=== PATIENT | female | born 1940 | race Caucasian/White ===

== ENCOUNTER 2017-03-07 14:12 | Inpatient (IN) | payer MEDICARE, BC, MEDICAID ==
[~2017-03-07] VITALS: Ht 170.2 cm; Wt 75.5 kg
--- NOTE | ~2017-03-07 | DS ---
PATIENT'S NAME: AME ADLER [facility] AGE: 76 Y [address] ROOM: [address] [address] [place] [facility] [place] DATE: 03/07/2017 Discharge Summary DISCHARGE DATE: 03/12/2017 FAMILY PHYSICIAN: Belén Escalante MD ATTENDING PHYSICIAN: Gil Diaz DIAGNOSES: 1. Acute abdomen with purulent peritonitis with dense thickening of the distal ileum. 2. Delirium. 3. Hypertension. 4. B12 deficiency. 5. Gastroesophageal reflux disease. 6. Generalized anxiety disorder. SUMMARY: Ame Adler is a 76-year-old female, who had a 3-day history of abdominal symptoms that began with watery diarrhea followed by abdominal distention, pain, and bilious emesis. She was seen in the [facility] in [place] where she was noted to be febrile with heart rate in the 90s and initially normotensive. CT scan of the abdomen and pelvis was obtained, which showed question of intussusception in the ileum as well as some free fluid in the pelvis and distended loops of small bowel suggestive of early small bowel obstruction. The patient did develop some hypotension that responded to IV fluid boluses. The patient was flown to [facility] for further evaluation. The patient was evaluated by Dr. Diaz, a [facility] general surgeon, and was felt to have an acute abdomen. Recommendations for surgery were made along with risks, benefits, and alternatives. The patient proceeded to the operating room where an ileocecectomy was performed. Please see his procedure note for specifics. Postoperatively, the patient was admitted to the intensive care unit where she was kept at bedrest. Her midline incision was closed at the fascial layer, but the skin edges were kept open and wet-to-dry dressing changes were ordered. Pulmonary toiletry was encouraged. She was kept n.p.o. She had an NG tube to low intermittent suction. Lovenox was ordered for DVT prophylaxis and Zosyn was ordered for antibiotic. Hospitalist was consulted for medical management. On postop day 1, the patient was awake, denied having much pain. No nausea, no shortness of breath. Vital signs were stable with a blood pressure of 90/47, heart rate 85, she was afebrile. Hemoglobin was 10.3, white blood cell count 8.4. Activity was allowed as tolerated. On postop day 2, the patient was confused with hallucinations. T-max was 100.2. NG tube had 150 mL out. Wound Care was consulted for wound VAC placement to the incisional wound. On postop day 3, the patient's Wilder catheter was removed. She was transferred to the med surg unit. Her NG tube was removed. On postop day 4, the patient reported starving. She had had bowel movements. Her pain was controlled. She was started on a clear liquid diet and was advanced to a PATIENT'S NAME: AME ADLER [facility] AGE: 76 Y [address] ROOM: [address] [address] LOC[place]: [facility] [place] DATE: 03/07/2017 Discharge Summary DISCHARGE DATE: 03/12/2017 FAMILY PHYSICIAN: Belén Escalante MD ATTENDING PHYSICIAN: Gil Diaz surgical soft diet the following day. Arrangements were made for the patient to transfer to [facility]. With the [id number] phone call, it was noted that her blood cultures were positive in [place] with E coli. They plan to continue antibiotics for an additional week. A PICC line was placed prior to transfer for this purpose. Her central line was removed. DISCHARGE INSTRUCTIONS: Include following up with Dr. Prescott in 2 weeks. Continue on surgical soft diet until March 15, 2017, when she can advance to a regular diet. She is weightbearing as tolerated. Continue with PT, OT, and Speech Therapy as needed. Oxygen to keep O2 saturations greater than 90%. The wound VAC was not going to be available until Wednesday. It was removed and damp-to-dry dressings were ordered. Once the wound VAC is available, they can change it Wednesday, Wednesday, and Wednesday. DISCHARGE MEDICATIONS: Include: 1. Zosyn 3.375 g IV q.8 hours with the stop date for us on March 15, 2017, although they plan to continue for another week due to positive blood cultures. 2. Aspirin 325 mg p.o. daily. 3. BuSpar 10 mg p.o. 3 times daily. 4. Lovenox 40 mg subcu every day. 5. Magnesium oxide 400 mg p.o. daily. 6. Meclizine 25 mg p.o. twice daily p.r.n. dizziness. 7. Zofran 4 mg p.o. q.8 hours p.r.n. nausea. 8. Toprol-XL 25 mg p.o. daily. 9. Protonix 40 mg p.o. daily. 10. K-Tab 10 mEq p.o. daily. 11. Tylenol extra strength 1000 mg 4 times a day p.r.n. pain. 12. Flonase 1 spray in the nose every day p.r.n. congestion. 13. Calcium 500 mg 1 tablet p.o. daily. 14. Pepto-Bismol 2 tablets p.o. as needed for indigestion or diarrhea. For specifics on day-to-day care, please refer to the hospital chart. Final pathology showed distal ileum showing mucosal ulceration, chronic inflammation, recent hemorrhage, reactive glandular change, transmural acute inflammation 19 lymph nodes negative for malignancy. KALI JONES PA-C FOR MD JULIÁN ROBERSON/radha PATIENT'S NAME: AME ADLER [facility] AGE: 76 Y [address] ROOM: [place] [address] LOCATION: [facility] [place] DATE: 03/07/2017 Discharge Summary DISCHARGE DATE: 03/12/2017 FAMILY PHYSICIAN: Belén Escalante MD ATTENDING PHYSICIAN: Gil Diaz /[id number] CC: Belén Escalante MD [facility] Bed d: 03/17/17 0217 t: 03/25/17 1331, DISCHARGE SUMMARY
--- NOTE | ~2017-03-07 | HP ---
PATIENT'S NAME: JUAN LOVING [facility] AGE: 76 Y [address] ROOM: [place] [address] LOCATION: GICU ADMIT DATE: 03/07/2017 History & Physical DISCHARGE DATE: FAMILY PHYSICIAN: Belén Escalante MD ATTENDING PHYSICIAN: Marlene VACA DATE OF SERVICE: The initial consultation to the emergency department was for a 76-year-old female with abdominal pain, fever, and hypotension. HISTORY OF PRESENT ILLNESS IS FOLLOWS: The patient is a 76-year-old female with a 3-day history of abdominal symptoms that began with watery diarrhea and progressed to abdominal distention and pain and bilious emesis. The patient presented to [facility] in [place] for evaluation. Her initial examination by report showed abdominal tenderness and distention. She was febrile to 101. She had a heart rate in the 90s and she was initially normotensive. They obtained a CT scan of the abdomen and pelvis which showed question of intussusception in the ilium as well as some free fluid in the pelvis and distended loops of small bowel suggestive of early small bowel obstruction. Subsequent to this imaging, the patient developed period of hypotension with a systolic blood pressure as low as 69. This responded to multiple boluses of IV fluids. The patient was air evacuated to [facility] for further evaluation. On presentation here, she complains of abdominal pain and distention. The pain she describes as excruciating. She reports obstipation and no recent bowel movement. PAST MEDICAL HISTORY: Significant for hypertension, generalized anxiety disorder, gastroesophageal reflux disease, Schatzki esophageal ring treated with esophageal dilation, mood disorder. PAST SURGICAL HISTORY: Includes EGD with dilation in 2011 and cataract surgery, and ORIF for a left hip fracture. FAMILY HISTORY: Significant for hypertension in both her mother and father. LIST OF MEDICATIONS: Have been reviewed in the admission records and include, 1. Potassium chloride. 2. Magnesium oxide. 3. Meclizine. 4. Cyanocobalamin. PATIENT'S NAME: JUAN LOVING [facility] AGE: 76 Y [address] ROOM: [place] [address] LOCATION: GICU ADMIT DATE: 03/07/2017 History & Physical DISCHARGE DATE: FAMILY PHYSICIAN: Belén Escalante MD ATTENDING PHYSICIAN: Marlene VACA 5. Ergocalciferol. 6. Metoprolol. 7. Famotidine. 8. Fluticasone. 9. Buspirone. 10. Calcium with vitamin D. ALLERGIES: NO KNOWN DRUG ALLERGIES. SOCIAL HISTORY: She has never smoked and no recent alcohol intake. REVIEW OF SYSTEMS: She denies chest pain or shortness of breath, and she endorses positive nonbloody bilious emesis, obstipation, abdominal pain, bloating. PHYSICAL EXAM: VITAL SIGNS: Her heart rate is 95. She is normotensive with normal room air sats. GENERAL: She is a somewhat poor historian. She does attend to questions and is pleasant. She is in significant distress. HEENT: She is anicteric. Her mucous membranes are dry. Her oropharynx is clear. NECK: Supple. CARDIAC: She is in normal sinus rhythm per EKG. Her heart rate is in the 90s. She has no murmur. PULMONARY: Bilateral breath sounds. No wheezing. ABDOMEN: She has a well-healed infraumbilical midline incision consistent with her initial surgical history of tubal ligation. She has a protuberant and tympanic abdomen with apparent generalized peritonitis and there is no appreciable organomegaly. There are no overlying skin changes. EXTREMITIES: Her extremity exam is normal. BACK: Normal. LAB TESTS: [place] the [place] [address], her hemoglobin and hematocrit are 12 and 34 with a platelet count of 247. Her UA is 1.010 specific gravity with a pH of 6.0. Her sodium was 127, with a potassium of 3.3, a chloride of 94. Her glucose is 109. AST and ALT are 14 and 15 respectively with total bilirubin of 1.4. Her CRP is elevated at 6.5. An EKG shows normal sinus rhythm with a heart rate of 99, and her CT scan revealed small bowel dilation with apparent mechanical distal small bowel obstruction with a thickened distal ilium and surrounding edema. There is a moderate amount of ascites. PATIENT'S NAME: JUAN LOVING [facility] AGE: 76 Y [address] ROOM: [place] [address] [address]: [facility] ADMIT DATE: 03/07/2017 History & Physical DISCHARGE DATE: FAMILY PHYSICIAN: Belén Escalante MD ATTENDING PHYSICIAN: Marlene VACA IMPRESSION: Acute abdomen. Etiologies are multiple. It is possible that she has a small bowel obstruction from a distal small bowel tumor or intussusception from a pathological lead point. Other etiologies are also entertained to include infectious, inflammatory, and neoplastic causes. Given the severity of her symptoms, her fever and her transient hypotension and her generalized peritonitis, the plan is for abdominal exploration to be done on an emergent basis. I have discussed my findings and recommendations with the patient who agrees to proceed. She did express that she wants to be intubated for the procedure and for whatever duration postoperatively, but does not want to have electro-mechanical resuscitation in the event that she suffers cardiopulmonary arrest. PLAN: Abdominal exploration with postoperative ICU admission. MARLENE VACA MD CM/modl /[id number] D: [id number] T: HISTORY & PHYSICAL
--- NOTE | ~2017-03-07 | OR ---
PATIENT'S NAME: JUAN LOVING [facility] AGE: 76 Y [address] ROOM: [id number] [place], [place] [address] LOCATION: GICU ADMIT DATE: 03/07/2017 OR/Procedure Report DISCHARGE DATE: FAMILY PHYSICIAN: Belén Escalante MD ATTENDING PHYSICIAN: Gil DIAZ SURGEON: Gil Diaz MD LACTATION CONSULTANT: DATE OF PROCEDURE: 03/07/2017 ANESTHESIA: General endotracheal anesthesia. PROCEDURE PERFORMED: Exploratory laparotomy. SPECIMENS: Ileocecectomy and proximal margin. DESCRIPTION OF PROCEDURE: After informed consent was obtained, the patient was taken to the operating room. A right internal jugular central line and radial A-line were both placed by Anesthesia. The patient was intubated. Her abdomen was sterilely prepped and draped. Inspection of her abdomen revealed a distended abdomen with an infraumbilical midline scar consistent with her open tubal ligation. A surgical time-out was performed. A midline laparotomy incision from just above the umbilicus to above the symphysis pubis was made. Entry into the peritoneal cavity through the midline fascia was achieved with Bovie electrocautery. Purulent peritonitis was identified. The small bowel was eviscerated. The bowel was run from the ligament of Treitz, distally. Incidental jejunal diverticulosis was noted without evidence of small bowel diverticulitis or obstruction. In the distal ilium, starting 5 cm proximal to the ileocecal valve was a 22 cm length area of dense thickening with mesenteric scarring and foreshortening. These findings were suggestive of a small bowel tumor such as carcinoid, but certainly not diagnostic. Adjacent small bowel was erythematous, moderately distended, and mildly edematous. The large bowel distal to this was decompressed. The appendix, cecum, and remainder of the colon down to the rectosigmoid junction was normal in appearance. Moderate amount of pus was aspirated from the peritoneal cavity. The palpated and visualized surfaces of the liver, stomach, and omentum were normal except for omental inflammation. No omental seeding implants or caking was noted. Attention was turned to the area of obstruction. In this area, there was some significant serositis and evidence of likely perforation. Resecting this very thickened segment of ileum required an ileocecectomy with resection of a total of approximately 40 cm of distal ileum. A hand-sewn end-to-end ileocolic anastomosis was fashioned using a running 5-0 PDS suture. This was reinforced with several interrupted, Lemberted seromuscular silks. The mesenteric defect was closed with a running 2-0 Vicryl. 6 L of irrigation was used to irrigate the abdominal cavity. The omentum was placed in the vicinity of the anastomosis. The midline fascia was closed with #1 looped PDS x2. The skin was left partially open with interrupted serena and Betadine soaked packs. Sterile dressings were PATIENT'S NAME: JUAN LOVING [facility] AGE: 76 Y [address] ROOM: [place] [address] LOCATION: [facility] ADMIT DATE: 03/07/2017 OR/Procedure Report DISCHARGE DATE: FAMILY PHYSICIAN: Belén Escalante MD ATTENDING PHYSICIAN: Gil DIAZ. The patient was extubated in the operating room, taken to the recovery room in stable condition. She will be monitored postoperatively in the intensive care unit. GIL DIAZ MD CM/radha /[id number] d: 03/07/172038 t: 03/07/172204, OPERATIVE SUMMARY
--- NOTE | ~2017-03-07 | HP ---
PATIENT'S NAME: JUAN LOVING [facility] AGE: 76 Y [address] ROOM: [place] [address] LOCATION: GICU ADMIT DATE: 03/07/2017 History & Physical DISCHARGE DATE: FAMILY PHYSICIAN: Belén Escalante MD ATTENDING PHYSICIAN: Gil VACA DATE OF SERVICE: CHIEF COMPLAINT: Abdominal pain. HISTORY OF PRESENT ILLNESS: A 76-year-old lady with a past medical history of hypertension, was transferred from outside facility, [place], with abdominal pain which was located initially in the right lower quadrant and then spread all over. Associated with fever and chills and hypotension on the presentation with the systolic around 70s, was transferred over here by [facility]. Initial lab work was significant for leukocytosis, lactic acidosis. A CAT scan of the abdomen was done at the transferring facility which did show developing small-bowel obstruction, likely intussusception. General Surgery took the patient to the OR for exploratory laparotomy and found ileal perforation and about 40 cm of the small bowel was resected and an end-to-end anastomosis was done. There was a lot of pus in the abdomen, so the fascia was rejoined but the skin was left open due to fear of infection. On my encounter, she is lying here alert and oriented, comfortable. States that she is not feeling any abdominal pain at this point; does not have any shortness of breath, any chest pain, any fever or chills, but she stated that she is feeling cold. Does not have any appetite at this point. REVIEW OF SYSTEMS: All other systems reviewed and were negative except for what is mentioned in the HPI. PAST MEDICAL HISTORY: Hypertension, gastroesophageal reflux disease, B12 deficiency, generalized anxiety disorder, osteoporosis. MEDICATIONS: Being reconciled right now. ALLERGIES: NO KNOWN DRUG ALLERGIES. SOCIAL HISTORY: No ongoing toxic habits. PATIENT'S NAME: JUAN LOVING [facility] AGE: 76 Y [address] ROOM: [place] [address] LOCATION: GICU ADMIT DATE: 03/07/2017 History & Physical DISCHARGE DATE: FAMILY PHYSICIAN: Belén Escalante MD ATTENDING PHYSICIAN: Gil VACA FAMILY HISTORY: Negative for any premature coronary artery disease. PHYSICAL EXAMINATION: VITAL SIGNS: Temperature 98.7, pulse 75, respiratory rate of 16, blood pressure systolic in the 120s over 70s on the Art-Line. GENERAL: In no acute distress. Alert and oriented x3. HEENT: Head; atraumatic, normocephalic. Eyes; nonicteric, no pallor. Oropharynx, moist mucous membranes. CARDIOVASCULAR: S1, S2. No murmurs, gallops, or rubs. LUNGS: Clear to auscultation bilaterally. ABDOMEN: Exploratory incision is surgically dressed. Bowel sounds are present. No CVA tenderness noted on superficial palpation. EXTREMITIES: No clubbing, cyanosis, or edema. PSYCH: Normal affect, mood, and speech. NEURO: Cranial nerves 2 through 12 intact. No motor or sensory deficit. MUSCULOSKELETAL: No muscle tenderness or joint swelling noted. ENDOCRINE: No thyromegaly or myxedema noted. SKIN: No blemishes or rashes noted. LABORATORY AND DIAGNOSTIC DATA: CT scan at the outside facility showed question of intussusception in the ileum as well as some free fluid in the pelvis and distended loops of small bowel suggestive of early small bowel obstruction. Initial lab work from outside facility showed a white count of 16, hematocrit 12, platelets 247. Sodium 127, potassium 3.3, chloride 94, glucose 109. AST and ALT of 14 and 15, bilirubin 1.4. ASSESSMENT AND PLAN: 1. Acute surgical abdomen, status post laparotomy, status post bowel resection and end-to-end anastomosis with open skin incision. The patient is hemodynamically stable now, not on pressors. Receiving broad- spectrum antibiotics for this severe intra-abdominal infection. 2. Hypertension. We will hold the antihypertensive medications for now. Electrolyte abnormality including hypokalemia. We will replace the potassium. We will follow this patient. Thank you for involving us in the care of this patient. MD DEMETRIA COX/radha PATIENT'S NAME: JUAN LOVING [facility] AGE: 76 Y [address] ROOM: [place] [address] LOCATION: [facility] ADMIT DATE: 03/07/2017 History & Physical DISCHARGE DATE: FAMILY PHYSICIAN: Belén Escalante MD ATTENDING PHYSICIAN: Gil VACA /[id number] D: [id number] T: [id number] HISTORY & PHYSICAL
[~2017-03-07 14:12] MED LIST changes: -MAG-OX-400(241400 MG PO; -PEPTO-BISMOL262 MG PO; -PROTONIX40 MG PO; -TOPROL XL25 MG PO
[2017-03-07 20:39] LABS: HEMATOCRIT 32.8 % (33.0-46.0); HEMOGLOBIN 11.2 g/dL (10.0-15.0); MCH 29.5 pg (27.0-34.0); MCHC 34.1 gm/dL (32.0-36.5); MCV 86.3 fl (83.0-98.0); MPV 8.8 fl (9.4-12.4); PLATELET COUNT 238 K/uL (150-450); RDW-CV 13.8 % (11.9-14.6)
[2017-03-07 20:52] LABS: ANION GAP 11.6 (10.0-19.0); CREATININE 0.6 mg/dL (0.5-1.1); POTASSIUM 3.6 mMol/L (3.7-5.1)
[2017-03-07 20:53] LABS: CALCIUM 6.4 mg/dL (8.5-10.5)
[2017-03-07 21:13] LABS: ABSOLUTE NEUTROPHIL CT (ANC) 4.6 K/uL (1.8-7.8); BANDED NEUTROPHIL # 3.1 K/uL (0.0-0.1); BANDED NEUTROPHILS % 61 %; LYMPHOCYTE # 0.3 K/uL (0.8-4.0); LYMPHOCYTE % 6 %; MONOCYTE # 0.1 K/uL (0.0-1.0); SEGMENTED NEUTROPHIL # 1.6 K/uL (1.8-7.8); SEGMENTED NEUTROPHIL % 31 %
[2017-03-08 04:50] LABS: HEMATOCRIT 30.6 % (33.0-46.0); HEMOGLOBIN 10.3 g/dL (10.0-15.0); MCH 29.7 pg (27.0-34.0); MCHC 33.7 gm/dL (32.0-36.5); MCV 88.2 fl (83.0-98.0); MPV 9.3 fl (9.4-12.4); PLATELET COUNT 220 K/uL (150-450); RBC 3.47 M/uL (3.50-5.50); RDW-CV 14.1 % (11.9-14.6); WBC 8.4 K/uL (4.0-11.0)
[2017-03-08 04:55] LABS: ANION GAP 11.4 (10.0-19.0); BLOOD UREA NITROGEN 7 mg/dL (6-24); CALCIUM 7.5 mg/dL (8.5-10.5); CHLORIDE 107 mMol/L (96-110); CO2 20 mMol/L (22-32); CREATININE 0.5 mg/dL (0.5-1.1); POTASSIUM 4.4 mMol/L (3.7-5.1); SODIUM 134 mMol/L (135-145)
[2017-03-08 05:29] LABS: ABSOLUTE NEUTROPHIL CT (ANC) 7.7 K/uL (1.8-7.8); BANDED NEUTROPHIL # 5.4 K/uL (0.0-0.1); BANDED NEUTROPHILS % 64 %; LYMPHOCYTE # 0.3 K/uL (0.8-4.0); LYMPHOCYTE % 3 %; MONOCYTE # 0.3 K/uL (0.0-1.0); SEGMENTED NEUTROPHIL # 2.4 K/uL (1.8-7.8); SEGMENTED NEUTROPHIL % 28 %
--- NOTE | 2017-03-08 07:18 | NUR ---
Significant Event: PATIENT IS A/O BUT FORGETFUL. VSS ON 2L OF O2 NC, LS ARE CLEAR AND DIM IN THE BASES, SPONTANEOUS COUGH. HAS DRESSING ON ABDOMEN WITH NO DRAINAGE. BS ARE MORE ACTIVE THIS MORNING. NO BM, ADEQUATE UOP. AFEBRILE. DOUBLE LUMEN IJ, PIVX2 AND LEFT ART-LINE. NS AT 150ML/HR AND MORPHINE PERSONAL SERVICE WORKERS DEMAND ONLY WITH GOOD PAIN CONTROL. Follow up:
[2017-03-08 09:50] LABS: PCO2 36 mmHg (35-45)
[2017-03-08 09:51] LABS: PO2 290 mmHg (80-90); POTASSIUM 4.3 mEq/L (3.7-5.1); SODIUM 128 mEq/L (135-145)
[2017-03-08] MEDS ORDERED: MAG-OX-400(241400 MG PO (11:04)
[2017-03-08] MEDS ORDERED: TOPROL XL25 MG PO (11:04)
[2017-03-08] MEDS ORDERED: PROTONIX40 MG PO (11:04)
[2017-03-08] MEDS ORDERED: PEPTO-BISMOL262 MG PO (11:05)
--- NOTE | 2017-03-08 15:54 | NUR ---
SIGNIFICANT EVENT: PATIENT IS ALERT AND ORIENTED TO SELF. INCONSISTENTLY ORIENTED TO TIME AND PLACE. FORGETFUL AT TIMES. CONFUSED AND FORGETFUL COMMENTS. AFEBRILE. NO EDEMA. SBP 90-120S. HR 70-90S. 2L OXYGEN. LUNGS CLEAR IN UPPER LOBES AND CLEAR AND DIMINISHED IN LOWER LOBES. R). NG TUBE TO SUCTION. GUO IS INTACT. LOW URINE OUTPUT AT TIMES, REPORTED TO DR. JOE. BOWEL SOUNDS PRESENT. ABDOMINAL INCISION DRESSING IS DRY AND INTACT, NO COMPLICATIONS . ABDOMEN IS FIRM. R). DOUBLE LUMEN JUGULAR IV, R) FOREARM AND R) ANTECUBITAL IV FLUSH WELL, NO COMPLICATIONS. ARTERIAL LINE DC'D AT 1440. MORPHINE BONER MEAT, NORMAL SALINE, AND INTERMITTENT ANTIBIOTICS INFUSING THROUGH IV. FOLLOW UP: CONT. TO MONITOR
[2017-03-09 01:22] LABS: BILIRUBIN URINE NEGATIVE (NEGATIVE); BLOOD URINE 150 /UL (NEGATIVE); COLOR URINE YELLOW (YELLOW); GLUCOSE URINE NEGATIVE (NEGATIVE); KETONE URINE 50 mg/dL (NEGATIVE); LEUKOCYTES URINE 25 /UL (NEGATIVE); NITRITE URINE NEGATIVE (NEGATIVE); PROTEIN URINE 15 mg/dL (NEGATIVE); TURBIDITY URINE CLEAR (CLEAR); UROBILINOGEN URINE NORMAL (NORMAL)
[2017-03-09 01:32] LABS: BACTERIA URINE NEGATIVE (NEGATIVE); EPITHELIAL URINE 0-2 #/HPF (NEGATIVE); WBC URINE 0-2 #/HPF (NEGATIVE)
[2017-03-09 02:52] LABS: ALBUMIN 2.4 gm/dL (3.5-5.0); BLOOD UREA NITROGEN 7 mg/dL (6-24); CHLORIDE 109 mMol/L (96-110); CREATININE 0.5 mg/dL (0.5-1.1); POTASSIUM 3.7 mMol/L (3.7-5.1); SODIUM 136 mMol/L (135-145)
[2017-03-09 03:00] LABS: ANION GAP 13.7 (10.0-19.0); CALCIUM 7.2 mg/dL (8.5-10.5); CO2 17 mMol/L (22-32); PHOSPHORUS 1.8 mg/dL (2.5-4.9)
[2017-03-09 03:18] LABS: HEMATOCRIT 25.6 % (33.0-46.0); HEMOGLOBIN 8.5 g/dL (10.0-15.0); MCH 29.8 pg (27.0-34.0); MCHC 33.2 gm/dL (32.0-36.5); MCV 89.8 fl (83.0-98.0); MPV 9.5 fl (9.4-12.4); PLATELET COUNT 190 K/uL (150-450); RBC 2.85 M/uL (3.50-5.50); RDW-CV 14.6 % (11.9-14.6); WBC 9.7 K/uL (4.0-11.0)
[2017-03-09 04:14] LABS: ABSOLUTE NEUTROPHIL CT (ANC) 8.8 K/uL (1.8-7.8); BANDED NEUTROPHIL # 2.9 K/uL (0.0-0.1); BANDED NEUTROPHILS % 30 %; LYMPHOCYTE # 0.8 K/uL (0.8-4.0); LYMPHOCYTE % 8 %; SEGMENTED NEUTROPHIL # 5.9 K/uL (1.8-7.8); SEGMENTED NEUTROPHIL % 61 %
--- NOTE | 2017-03-09 06:42 | NUR ---
Significant Event: PATIENT IS ORIENTED TO TIME AND DATE, HOWEVER SHE IS FORGETFUL OF PLACE AND SITUATION. SHE IS CONFUSED AND HAS OFF STATEMENTS, RESTLESS AND TRIES TO GET OUT OF BED. LS ARE CLEAR. KCL AND KPHOS CURRENTLY RUNNING. NO BM, ADEQUATE UOP. DRESSING HAS SOME DRY BLOOD ON THE LEFT UPPER QUADRANT. RIGH PIV AND MORPHINE MEDICAL CARE MANAGER DISCONTNUED. Follow up:
[2017-03-09 07:17] LABS: HEMATOCRIT 25.6 % (33.0-46.0); HEMOGLOBIN 8.5 g/dL (10.0-15.0)
--- NOTE | 2017-03-09 13:51 | NUR ---
Introduced self and CM role to Ame Blackwood". Rose tells me that she lives in [place], [place] but has most recently been living with her son, Norm as she wasn't able to get around on her own. She says that it is her goal to return back home when she is able to. Talked with her about possibly going to [facility] in [place] for a short time before returning home with either her son or herself upon dismissal. She says that she would be open to [facility]. Her PCP is Dr.Kathy Escalante. Therapies were waiting to work with her so I didn't stay long. Told her that I would come back when her son was in the room to further discuss dismissal plans. She was in agreement with this plan. CM to continue to follow and assist.
--- NOTE | 2017-03-09 16:47 | NUR ---
SIGNIFICANT EVENT: DANIELLA IS ORIENTED TO SELF. DISORIENTED TO TIME AND PLACE. HAS BEEN HAVING VISUAL HALLUCINATIONS. HAS BECOME AGITATED THIS AFTERNOON. PUPILS ARE EQUAL AND BRISK. FOLLOWS COMMANDS. SBP 130-1402. HR 70-90S. NO EDEMA. AFEBRILE. INCENTIVE SPIROMETRY REINFORCED. ROOM AIR. LUNG ARE CLEAR IN UPPER LOBES AND CLEAR AND DIMINISHED IN THE LOWER LOBES. BOWEL SOUNDS ARE NORMOACTIVE. NG TUBE TO LOW INTERMITTENT SUCTION. NPO. WOUND VAC HAS BEEN PLACED OVER THE ABDOMINAL INCISION. NO NEW SKIN ISSUES. LEFT FOREARM IV, RIGHT JUGULAR, FLUSHES WELL WITH GOOD BLOOD RETURN. D5 1/2 NS WITH INTERMITTENT ANTIBIOTICS. IV TYLENOL. NO NEW COMPLAINTS OF PAIN.
[2017-03-10 04:25] LABS: ALBUMIN 2.3 gm/dL (3.5-5.0); ANION GAP 12.2 (10.0-19.0); BLOOD UREA NITROGEN 4 mg/dL (6-24); CHLORIDE 105 mMol/L (96-110); CO2 23 mMol/L (22-32); CREATININE 0.5 mg/dL (0.5-1.1); POTASSIUM 3.2 mMol/L (3.7-5.1); SODIUM 137 mMol/L (135-145)
[2017-03-10 04:26] LABS: CALCIUM 7.3 mg/dL (8.5-10.5); PHOSPHORUS 1.6 mg/dL (2.5-4.9)
--- NOTE | 2017-03-10 04:43 | NUR ---
Significant Event: Patient is oriented to person only. Visual hallucinations. Patient has been restless and often agitated and uncooperative with cares. 1:1 sitter. Top 4 side rails up per MD order. Refused temperature and O2 sat probe for 0300 assessment. VSS on room air. Max temperature of 99.6. HR 80s-100s. SBP 110s-160s. Lung sounds clear and dim. Bowel sounds normoactive with 1 smear. Midline abdominal incision with wound vac and no drainage. NG tube to LIS with 150ml green drainage out. Wilder intact with 2,835 dilute urine out. Patient denies pain. PRN seroquel given x1 for SAS score of 6. Follow up: Continue plan of care
[2017-03-10 05:15] LABS: BASOPHIL % 0.2 %; EOSINOPHIL # 0.3 K/uL (0.0-0.5); EOSINOPHIL % 2.8 %; HEMATOCRIT 24.6 % (33.0-46.0); HEMOGLOBIN 8.6 g/dL (10.0-15.0); IMMATURE GRANULOCYTE # 0.1 K/uL (0.0-0.3); IMMATURE GRANULOCYTE % 0.6 %; LYMPHOCYTE # 0.5 K/uL (0.8-4.0); MCH 30.1 pg (27.0-34.0); MONOCYTE # 0.4 K/uL (0.0-1.0); MONOCYTE % 3.5 %; MPV 9.6 fl (9.4-12.4); NEUTROPHIL # (ANC) 9.6 K/uL (1.8-7.8); NEUTROPHIL % 87.9 %; NRBC % 0 /100WBC (0-0.00); PLATELET COUNT 224 K/uL (150-450); RBC 2.86 M/uL (3.50-5.50); RDW-CV 14.3 % (11.9-14.6); WBC 10.9 K/uL (4.0-11.0)
--- NOTE | 2017-03-10 16:38 | NUR ---
VSS. Patient was calm and cooperative. Wilder catheter removed prior to transfer. Only skin issues were abdominal incision with wound vac attached. NPO but tolerates sips of water with pills.
--- NOTE | 2017-03-10 18:30 | NUR ---
Significant Event: Patient arrived to floor from ICU at 1545 on a Hi/Low bed. Patient is a 1:1 that for the most part appears oriented but then right before shift change patient asked AUTOMOTIVE HARDWARE ENGINEER and nurse if there was a device that caught the water from the water fall and recycled it. Patient was looking straight ahead at the wall and her TV was off. Patient's butts removed at 1530 and patient has voided 2-3 times since then in large amounts to ceramic capacitor processor credit--see rounding sheet for I&O totals for charting. Son has been in room most of the time since patient moved over to [facility]. Up with 1 assist, gait belt, and walker. Patient has midline incision to abdomen covered with a wound vac and a double lumen right jugular central line that is intact and patient with good blood return. Denies pain at this time. Follow up: Continue to monitor.
[2017-03-10 22:31] LABS: ALBUMIN 2.3 gm/dL (3.5-5.0); TOTAL BILIRUBIN 0.9 mg/dL (0.0-1.5); TOTAL PROTEIN 5.2 g/dL (6.0-8.4)
--- NOTE | 2017-03-11 03:59 | NUR ---
Pt. arrived to floor late in afternoon from ICU. Pt. alert but not oriented - has had some visual hallucinations. 1:1 sitter for impulsive and trying to pull out her lines in ICU - has been good this shift. 1 assist with walker. Abdominal midline incision with wound vac. Had some pain this shift so got order for tylenol. Pt. took and was able to get relief. Slept good. RA. VSS. R) jugular double lumen IV with fluids running. IV to L) forearm - saline locked. Has IV intermittnat antibx. Voiding well. NPO with sips for meds. Pleasant with cares this shift.
[2017-03-11 04:54] LABS: BASOPHIL % 0.4 %; EOSINOPHIL # 0.7 K/uL (0.0-0.5); EOSINOPHIL % 7.2 %; HEMATOCRIT 27.6 % (33.0-46.0); HEMOGLOBIN 9.7 g/dL (10.0-15.0); IMMATURE GRANULOCYTE # 0.1 K/uL (0.0-0.3); IMMATURE GRANULOCYTE % 0.5 %; LYMPHOCYTE % 10.3 %; MCH 30.1 pg (27.0-34.0); MCHC 35.1 gm/dL (32.0-36.5); MCV 85.7 fl (83.0-98.0); MONOCYTE # 0.5 K/uL (0.0-1.0); MONOCYTE % 5.1 %; MPV 9.1 fl (9.4-12.4); NEUTROPHIL # (ANC) 7.3 K/uL (1.8-7.8); NEUTROPHIL % 76.5 %; NRBC % 0 /100WBC (0-0.00); PLATELET COUNT 272 K/uL (150-450); RBC 3.22 M/uL (3.50-5.50); RDW-CV 14.1 % (11.9-14.6); WBC 9.6 K/uL (4.0-11.0)
[2017-03-11 05:08] LABS: ALBUMIN 2.8 gm/dL (3.5-5.0); ANION GAP 12.5 (10.0-19.0); CALCIUM 7.6 mg/dL (8.5-10.5); CREATININE 0.7 mg/dL (0.5-1.1); PHOSPHORUS 3.2 mg/dL (2.5-4.9); POTASSIUM 3.5 mMol/L (3.7-5.1)
--- NOTE | 2017-03-11 13:43 | NUR ---
Patient transferred to [facility]. I introduced myself to patient and son and explained my role with the CM department. Son states that patient was at [facility] in the past and she did not like it there. Son would like me to make a referral to [facility] in [place]. He states that the patient has seen Dr. Anay Reyes in [place] in the past and has an established relationship with her. I contacted Corie garcia coordinator at [facility] at [phone] and made a referral to her for patient. Per my conversation with her on the phone she did not think there would be a reason why they would not be able to accept, but she would contact Dr. Reyes and get her acceptance. I faxed patient's information to her at [phone]. I explained to Corie that patient is not a 1:1 at this time. We have weaned her off the 1:1 but all nursing notes indicate that she is a 1:1. Corie will review patient's information and then get back to me. [facility] is not able to accept her over the weekend.
--- NOTE | 2017-03-11 17:20 | NUR ---
Oriented to self. CAM negative. Up w/SBA, GB. Tolerating clear liquid diet. VSS, afebrile, on RA. Denies N/V/D and pain. Family at bedside. LFA PIV w/intermittent ABx. R)IJ w/GBR. IVF@50ml/hr. POC possible transfer to swing bed when appropriate.
--- NOTE | 2017-03-12 04:05 | NUR ---
Pt. alert and oriented to self. Negative on SAVEAART screening. 1 assist with walker and GB. IJ with double lumen and GBR. Fluids and antibx running through it. L) Peripheral - saline locked. IV antibx. Clear liquid diet. Voiding well. Loose BM's. Denies pain. Slept well through night. Per son: Plan is to leave Wednesday for swing bed somewhere around [place]. Cooperative and pleasant with cares.
[2017-03-12 07:50] LABS: BLOOD UREA NITROGEN 3 mg/dL (6-24); CALCIUM 7.7 mg/dL (8.5-10.5); CHLORIDE 100 mMol/L (96-110); CO2 26 mMol/L (22-32); CREATININE 0.5 mg/dL (0.5-1.1); SODIUM 135 mMol/L (135-145)
[2017-03-12 07:59] LABS: BASOPHIL % 0.4 %; EOSINOPHIL # 0.6 K/uL (0.0-0.5); HEMATOCRIT 28.4 % (33.0-46.0); HEMOGLOBIN 9.8 g/dL (10.0-15.0); IMMATURE GRANULOCYTE # 0.2 K/uL (0.0-0.3); IMMATURE GRANULOCYTE % 1.8 %; LYMPHOCYTE % 9.5 %; MCH 29.7 pg (27.0-34.0); MCHC 34.5 gm/dL (32.0-36.5); MCV 86.1 fl (83.0-98.0); MONOCYTE # 0.7 K/uL (0.0-1.0); MONOCYTE % 6.6 %; MPV 9.3 fl (9.4-12.4); NEUTROPHIL # (ANC) 7.6 K/uL (1.8-7.8); NEUTROPHIL % 75.7 %; NRBC % 0 /100WBC (0-0.00); PLATELET COUNT 300 K/uL (150-450); RDW-CV 14.2 % (11.9-14.6); WBC 10.1 K/uL (4.0-11.0)
--- NOTE | 2017-03-12 09:35 | NUR ---
Charge nurse Sachi called and patient can go today if [facility] will accept. Wound vac can be removed and changed to wet to dry until Swing's vac comes in. 0945 Called Corie at [facility], she will do some checking. 1005 Corie called back, will accept today. Wound vac will be their Wednesday. Doc to doc must be done first Dr Anay Reyes #[phone]. Called Kierra Steinberg, she will make the doctor call. Updated Liam Kohli, nurse Ledezma, Charge Sachi. 1025 Called Corie to verify they were aware of the IV abx every 8 hours? Yes and not a problem. 1120 Nurse Ledezma made arrangements for PICC placement as requested by [facility] if would not delay discharge. Called [facility] and left a message for Yumiko, patient leaving her around 1330, will fax orders just wont include PICC information at this time. 1130 Faxed orders.
--- NOTE | 2017-03-12 11:42 | NUR ---
Alert and oriented. Recent delirium postoperatively. Slightly still confused at night. Vital signs stable, afebrile, on room air. Denies nausea, vomiting, and pain. Loose stools post bowel resection. Surgical wound open with wound vac which was removed this a.m. for wet-to-dry dressings for transfer. New wound vac should be applied on Wednesday. PICC line is being placed prior to transfer for ease of continuing IV antibiotics. Right IJ central line pulled this a.m. with vaseline, gauze, and tegaderm applied. Ambulates with standby assist, gait belt, and walker. Voids frequently. DNR status. No PRN meds given. Cooperative with cares. Tolerating surgical soft diet well.
--- NOTE | 2017-03-12 13:54 | NUR ---
A - PT SCREENED D/T LOS. PT S/P SMALL BOWEL RESECTION 03/07. ALERT, CONFUSED. K+ 3.0, GLU 124, BUN/ATHLETIC EQUIPMENT MANAGER 3/0.5, ALB 2.8. SOFT DIET ORDERED THIS AM. NO INTAKE DATA YET. D - AT RISK W/ INADEQUATE ORAL INTAKE R/T NEED FOR BOWEL REST S/P SURGERY AEB NPO/CL UNTIL THIS AM. I - GOAL: 50% OR BETTER INTAKE BY DISMISSAL. M/E - 1) WILL OFFER ENSURE W/ BF AND DINNER TO INCREASE ENERGY AND PROTEIN ALLOWANCE AND F/U ON INTAKE IN 3-5 DAYS.
== END 2017-03-12 13:45 | disposition swing bed (61) | DRG 853 ==
LOC: GMED 14:12 → GICU 15:00 → GMSU 03-10 16:01
PROVIDERS: Family Medicine; Internal Medicine; Physician Assistant; ADMIT Surgery
PROC: 0DBB4ZZ Excision of Ileum, Percutaneous Endoscopic Approach (ICD-10-PCS; principal; 2017-03-07)
DX: A41.9 Sepsis, unspecified organism (principal); K65.9 Peritonitis, unspecified; K63.1 Perforation of intestine (nontraumatic); K56.69 Other intestinal obstruction; E87.2 Acidosis; K56.1 Intussusception; I95.9 Hypotension, unspecified; D64.9 Anemia, unspecified; E87.1 Hypo-osmolality and hyponatremia; K91.89 Other postprocedural complications and disorders of digestive system; I10 Essential (primary) hypertension; F41.9 Anxiety disorder, unspecified
CPT/HCPCS: C1751; C9113; J0131; J0610; J1650; J1940; J2270; J2543; J3010; J3480; J7030; J7040; J7042; J7050; P9045; P9047

== ENCOUNTER → 2017-03-07 | Outpatient (CLI) | payer MEDICARE, BC, MEDICAID ==
[~2017-03-07] MED LIST: ASPIRIN LO-DOSE81 MG PO; CALCIUM 500 +1 EACH PO; FLONASE 50 MCG/16 GM NOSE; K-TAB 10MEQ10 MEQ PO; MAG-OX-400(241400 MG PO; MECLIZINE HCL25 MG PO; NORVASC5 MG PO; PEPTO-BISMOL262 MG PO; PROTONIX40 MG PO; THERMOTABS TAB1 EACH PO; TOPROL XL25 MG PO; ZOFRAN4 MG PO
== END | disposition disaster alternative care site (69) ==
LOC: GAIR 13:48
DX: K56.60 Unspecified intestinal obstruction (principal); K21.9 Gastro-esophageal reflux disease without esophagitis; I95.9 Hypotension, unspecified; I10 Essential (primary) hypertension; R53.1 Weakness; R11.2 Nausea with vomiting, unspecified; R19.7 Diarrhea, unspecified; R10.9 Unspecified abdominal pain; Z79.899 Other long term (current) drug therapy; R10.819 Abdominal tenderness, unspecified site
CPT/HCPCS: A0422; A0431; A0436; J2405; J3010